=== PATIENT | male | born 1965 | race Caucasian/White ===

== ENCOUNTER 2017-11-13 10:11 | Emergency (ER) | payer OTHER ==
[~2017-11-13] VITALS: Ht 180.3 cm; Wt 109.1 kg
[2017-11-13] MEDS ORDERED: BYSTOLIC10 MG PO (10:42)
[2017-11-13] MEDS ORDERED: ATIVAN0.5 MG PO (10:43)
[2017-11-13] MEDS ORDERED: COZAAR100 MG (10:44)
[2017-11-13] MEDS ORDERED: ZYLOPRIM 100MG100 MG PO (10:45)
[2017-11-13] MEDS ORDERED: FINASTERIDE5 M1 PO (10:45)
[2017-11-13] MEDS ORDERED: FLOMAX0.4 MG PO (10:45)
[2017-11-13 11:36] LABS: ALBUMIN 4.6 g/dL (3.5-5.0); BUN/CREATININE RATIO 13.5 (6.0-26.0); CALCIUM 9.6 mg/dL (8.4-10.2); POTASSIUM 4.7 mmol/L (3.6-5.0); TOTAL BILIRUBIN 0.5 mg/dL (0.2-1.3); TOTAL PROTEIN 7.8 g/dL (6.3-8.2)
[2017-11-13 12:02] LABS: CKMB ISOENZYME 1.6 ng/mL (0.6-3.5)
[2017-11-13 12:14] LABS: TROPONIN-I < 0.03 ng/mL (0.00-0.06)
[2017-11-13 13:16] LABS: D-DIMER 0.06 mg/L FEU (0.15-0.50)
[2017-11-13 13:17] LABS: EOS # 0.2 (0.04-0.40); EOS % 1.9 % (0.0-4.0); HEMATOCRIT 43.4 % (42.0-52.0); LYMPH# 1.6 (1.50-4.00); MEAN CELL VOLUME 87 fl (78-100); MEAN CORPUSCULAR HEMOGLOBIN 28 pg (27-31); MEAN CORPUSCULAR HGB CONC 32 g/dL (33-37); MEAN PLATELET VOLUME 10.5 fl (7.4-10.4); MONO # 0.6 (0.20-0.80); NEU # 7.8 (1.40-6.50); PLATELET COUNT 282 K/mm3 (130-400); RED BLOOD COUNT 4.98 M/mm3 (4.20-5.60); WHITE BLOOD COUNT 10.3 K/mm3 (4.8-10.8)
[2017-11-13] MEDS ORDERED: KLONOPIN 0.5MG0.5 MG PO (13:44)
[2017-11-13 13:55] VITALS: BP 144/99
== END 2017-11-13 14:39 | disposition home or self-care (01) ==
LOC: ED 10:11
PROVIDERS: Nurse Practitioner Primary Care
DX: F41.9 Anxiety disorder, unspecified (principal); R07.89 Other chest pain; I10 Essential (primary) hypertension; M10.9 Gout, unspecified